=== PATIENT | female | born 1965 | race Caucasian/White ===

== ENCOUNTER 2017-01-10 12:02 | Emergency (ER) | payer MEDICAID, OTHER ==
[~2017-01-10] VITALS: Ht 162.6 cm; Wt 62.6 kg
[~2017-01-10 12:02] MED LIST: AZITHROMYCIN500 MG ORAL; SERTRALINE HCL100 MG PO; TENEX1 MG ORAL
[2017-01-10 13:04] LABS: BASOPHILS % (AUTO) 1.6 % (0.0-2.0); EOSINOPHILS % (AUTO) 7.6 % (0.0-3.0); LYMPHOCYTES % (AUTO) 17.9 % (20.0-45.0); MEAN CORPUSCULAR HEMOGLOBIN 29.3 PG (27.0-31.0); MEAN CORPUSCULAR HGB CONC 32.3 G/DL (32.0-36.0); MEAN CORPUSCULAR VOLUME 91 FL (80-99); MEAN PLATELET VOLUME 7.3 FL (6.5-10.1); MONOCYTES % (AUTO) 6.8 % (1.0-10.0); NEUTROPHILS % (AUTO) 66.1 % (45.0-75.0); PLATELET COUNT 400 K/UL (150-450); RED BLOOD COUNT 4.79 M/UL (4.20-5.40); RED CELL DISTRIBUTION WIDTH 13.1 % (11.6-14.8); WHITE BLOOD COUNT 7.9 K/UL (4.8-10.8)
[2017-01-10 13:10] VITALS: BP 103/58
[2017-01-10 13:31] LABS: ALANINE AMINOTRANSFERASE 10 U/L (3-33); ALBUMIN/GLOBULIN RATIO 1.4 (1.0-2.7); ANION GAP 11 (5-15); ASPARTATE AMINO TRANSFERASE 13 U/L (5-40); CALCIUM 9.6 mg/dL (8.6-10.2); CARBON DIOXIDE 30 mEQ/L (20-30); CHLORIDE 99 mEQ/L (98-107); CREATININE 0.6 mg/dL (0.5-0.9); GLOMERULAR FILTRATION RATE > 60 mL/min (>60); HEMOLYSIS 4; POTASSIUM 4.3 mEQ/L (3.4-4.9); SODIUM 140 mEQ/L (135-145); TOTAL PROTEIN 7.2 g/dL (6.6-8.7); TROPONIN I < 0.30 ng/mL (<=0.30)
[2017-01-10 13:41] LABS: CKMB < 1.5 ng/mL (< 3.8)
--- NOTE | 2017-01-10 14:39 | Emergency Room Report ---
History of Present Illness General Chief Complaint: Chest Pain Source: Patient (ANDREAS BARNHART M.D.) Present Illness HPI 51-year-old female presents ED complaining of chest pain x2 week. States pain is midsternal, sharp, 10 out of 10. Nonradiating. worse with position changes. No other aggravating or relieving factors. Denies shortness of breath. Patient denies any chest pain during evaluation. Patient states approximately one month ago she had a mastectomy done at [facility]. Has tissue expanders in place. Patient states she believes some of the pain is related to the surgery however pain is persisting. Surgical oncologist Dr Brown recommended that patient come in for evaluation and workup. Denies cardiac history. Denies smoking or drug use. No other aggravating or relieving factors. Denies any other associated symptom (ANDREAS BARNHART M.D.) Allergies: Coded Allergies: PENICILLINS (Verified Allergy, Unknown, 06/11/16) SULFA (SULFONAMIDE ANTIBIOTICS) (Verified Allergy, Unknown, 06/11/16) Patient History Past Medical History: none Past Surgical History: other - double mastectomy Pertinent Family History: none Social History: Denies: alcohol use, drug use, smoking Now: No Immunizations: UTD Reviewed Nursing Documentation: PMH: Agreed, PSxH: Agreed (ANDREAS BARNHART M.D.) Past Medical History: see triage record Past Surgical History: other - fusion, masectomies Social History: 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 (Nba Adamson M.D.) Nursing Documentation-PMH Past Medical History: No History, Except For Hx Cancer: Yes - Breast cancer 2008 (ANDREAS BARNHART M.D.) Review of Systems All Other Systems: negative except mentioned in HPI (ANDREAS BARNHART M.D.) Physical Exam Vital Signs Date Time Temp Pulse Resp B/P Pulse Ox O2 Delivery O2 Flow Rate FiO2 01/10/17 12:07 97.9 82 20 114/75 97 Room Air Sp02 EP Interpretation: reviewed, normal General Appearance: no apparent distress, alert, GCS 15, non-toxic Head: normocephalic Eyes: bilateral eye PERRL, bilateral eye normal inspection ENT: hearing grossly normal, normal pharynx, no angioedema, normal voice Neck: full range of motion, supple/symm/no masses Respiratory: other - midsternal reproducible chest wall pain Cardiovascular #1: regular rate, rhythm, no edema Gastrointestinal: normal inspection Rectal: deferred Genitourinary: no CVA tenderness Musculoskeletal: normal inspection Neurologic: alert, oriented x3, responsive, motor strength/tone normal, sensory intact, speech normal Psychiatric: normal inspection Skin: normal inspection Lymphatic: normal inspection (ANDREAS BARNHART M.D.) Medical Decision Making Diagnostic Impression: Primary Impression: Chest pain Qualified Codes: R07.89 - Other chest pain Additional Impressions: Status post mastectomy Qualified Codes: Z90.13 - Acquired absence of bilateral breasts and nipples Breast expansion pain ER Course Please see note from Dr. Barnhart. CTA negative for PE. Stranding. L breast with deformity and taughtness. No erythema but palpation = tenderness. She states this has been severe for 2 weeks after she had the procedure. States has been off percocet 2 days. Initially taking every 4 hours, now 1/2 BID on occasion. Prior problems with alcohol - sober 7 years. Problems with constipation from percocet. Recent Rx for lactulose (has not filled). Consideration for infection, but WBC normal and no fever or warmth. Will be seeing plastic surgeon Wed. Discussed with PMD, Dr. Brown who agrees with plan. Patient stable for outpatient observation and treatment. (Nba Adamson M.D.) EKG Diagnostic Results Rate: normal Rhythm: NSR ST Segments: no acute changes ASA given to the pt in ED: No (ANDREAS BARNHART M.D.) Rhythm Strip Diag. Results EP Interpretation: yes Rhythm: NSR, no PVC's, no ectopy (ANDREAS BARNHART M.D.) Chest X-Ray Diagnostic Results EP Interpretation: Yes Findings: no consolidation, no effusion, no pneumothorax, no acute cardiopulmonary disease Number of Views: 1 (ANDREAS BARNHART M.D.) CT/MRI/US Diagnostic Results CT/MRI/US Diagnostic Results : Imaging Test Ordered: CTA chest Impression IMPRESSION: No evidence of pulmonary embolism or other significant acute thoracic pathology Evidence of bilateral mastectomies and placement of bilateral chest wall expanders Thoracolumbar scoliosis with previous posterior fusion Cervical thoracic degenerative disc disease Low attenuation liver lesions probably but not definitely cysts. Ultrasound correlation suggested. (Nba Admason M.D.) Last Vital Signs Date Time Temp Pulse Resp B/P Pulse Ox O2 Delivery O2 Flow Rate FiO2 01/10/17 13:10 98.1 67 12 103/58 100 Room Air (ANDREAS BARNHART M.D.) Last Vital Signs Date Time Temp Pulse Resp B/P Pulse Ox O2 Delivery O2 Flow Rate FiO2 01/10/17 15:55 65 11 134/79 100 Room Air 01/10/17 13:10 98.1 Status: improved (Nba Adamson M.D.) Disposition: HOME, SELF-CARE Condition: Improved Scripts Oxycodone/Acetaminophen 5-325* (PERCOCET 5-325 MG TABLET*) 1 Each Tablet 1 TAB ORAL Q4H Y for For Pain, #15 TAB 0 Refills Prov: Nba Adamson M.D. 01/10/17 Referrals: NON PHYSICIAN (PCP) ANDREAS BARNHART M.D. January 10, 2017 14:39 Nba Adamson M.D. January 11, 2017 02:37
[2017-01-10] MEDS ORDERED: Lactulose 20gm/30ml UDC ORAL ONE (15:15)
[2017-01-10] MEDS ORDERED: Oxycodone/Acetaminophen 5-325 ORAL ONE (15:15)
[2017-01-10] MEDS ORDERED: PERCOCET 5-3251 EACH ORAL (15:28)
[2017-01-10 15:55] VITALS: BP 134/79
--- NOTE | 2017-01-10 16:35 | Diagnostic Imaging Report ---
Indications: Chest pain Technique: AP chest Findings: Comparison: 06/11/16 Cardiac silhouette remains normal in size. Pulmonary vasculature remains within normal limits. Lungs and pleura remain clear. Scoliosis, vertebral fusion hardware again noted. Bilateral chest wall expanders now present within the regions of the breasts. IMPRESSION: No evidence of acute disease, unchanged interval surgical changes as described Stable chronic changes as described
--- NOTE | 2017-01-10 16:35 | Diagnostic Imaging Report ---
Indications: Chest pain for 2 weeks, bilateral mastectomy one month ago Technique: Continuous helical CT imaging of the thorax was performed with automatic exposure control, following bolus intravenous administration of nonionic iodine contrast, on a Siemens sensation [address] scanner. Axial images reconstructed at 3 mm slice thickness and 1.5 mm interval. Coronal and sagittal images were reconstructed at 3 mm slice thickness. Coronal and sagittal two-dimensional maximum intensity projection and three-dimensional volume-rendered images were reconstructed on a stand alone workstation. CTDI volume(s): 13, 15, 24 mGy Total DLP: 838 mGy-cm Findings: Comparison: None The main pulmonary artery, right and left pulmonary arteries, and pulmonary artery branches to the level of third order branching are patent and well-opacified. No intraluminal filling defects are demonstrated. Thoracic aorta and great vessels are patent and well-opacified with no significantplaquing, normal in caliber and configuration. No evidence of aneurysm, dissection, or leak. Heart is normal in size. No pericardial abnormality. No mediastinal or hilar enlarged lymph nodes, other abnormal mass or fluid collection. Lungs normally, symmetrically inflated and clear. No pleural abnormality. Bilateral chest wall expanders are present in place of both breasts. Mild surrounding subcutaneous stranding overlying skin thickening bilaterally. The thoracic and upper lumbar spine demonstrates mild S-shaped scoliosis. Metal bridget runs along the left posterior margin of the thoracic and upper lumbar spine. The posterior elements of multiple contiguous thoracic and upper lumbar vertebral levels appear fused. Multiple lower cervical and upper thoracic intervertebral disc spaces are 9? narrowed with marginal osteophyte formation and discogenic sclerosis. No focal skeletal lesions are identified. Several circumscribed low-attenuation foci scattered throughout the liver. Remainder of imaged upper abdominal anatomy unremarkable. IMPRESSION: No evidence of pulmonary embolism or other significant acute thoracic pathology Evidence of bilateral mastectomies and placement of bilateral chest wall expanders Thoracolumbar scoliosis with previous posterior fusion Cervical thoracic degenerative disc disease Low attenuation liver lesions probably but not definitely cysts. Ultrasound correlation suggested.
--- NOTE | 2017-01-11 19:01 | Cardiology Report ---
APPROVED REPORT EKG Measurement Heart [id number] Normal sinus rhythm Possible Left atrial enlargement Low voltage QRS Borderline ECG
== END 2017-01-10 15:58 | disposition home or self-care (01) ==
LOC: EMR 13:10
DX: R07.9 Chest pain, unspecified (principal); Z90.13 Acquired absence of bilateral breasts and nipples; Z88.0 Allergy status to penicillin; Z88.2 Allergy status to sulfonamides; M41.35 Thoracogenic scoliosis, thoracolumbar region; M51.34 Other intervertebral disc degeneration, thoracic region; Z85.3 Personal history of malignant neoplasm of breast
CPT/HCPCS: 36415; 71010; 71275; 80053; 80300; 82550; 82553; 83880; 84484; 85025; 85379; 93005; 96374; 99284; Q9967